=== PATIENT | female | born 1975 | race Hispanic/Latino ===

== ENCOUNTER 2018-09-27 15:06 | Outpatient (CLI) | payer MEDICAID, OTHER ==
--- NOTE | 2018-09-30 12:04 | MMO ---
BILATERAL SCREENING MAMMOGRAM: Date: 09/27/18 INDICATION: Annual exam. COMPARISON: Prior exam dated 04/12/17. FINDINGS: Interpretation of this exam was assisted with computer-aided detection. There is a new focal asymmetry seen within the 12 o'clock position of the right breast, middle depth, that was not definitely present on the comparison examination. The breast parenchyma is heterogeneously dense. No additional suspicious abnormality is seen, especially in the contralateral left breast. IMPRESSION: BIRADS 0: Incomplete: Need Additional Imaging Evaluation and/or Prior Mammograms for Comparison There is a new focal asymmetry seen within the 12 o'clock position of the right breast on the CC and MLO projection. Recommend spot magnification compression view with potential for ultrasound examinati on. The facility will notify patient of need for additional imaging services. POS: JOHN
== END 2018-09-27 15:07 | disposition home or self-care (01) ==
LOC: SCSMAMMO 15:06
PROVIDERS: ATTEND Nurse Practitioner Women's Health
DX: Z12.31 Encounter for screening mammogram for malignant neoplasm of breast (principal); N64.89 Other specified disorders of breast
CPT/HCPCS: 77067

== ENCOUNTER 2018-10-07 14:56 | Outpatient (CLI) | payer MEDICAID, OTHER ==
--- NOTE | 2018-10-08 15:00 | MMO ---
FILMS COMPARED: The present examination has been compared to prior imaging studies performed at [facility] on 04/12/2017 and 09/27/2018. MAMMOGRAM FINDINGS: The breast is heterogeneously dense, which could obscure a lesion on mammography. There is a focal asymmetry seen in the upper-outer region of the right breast. Tomosynthesis images show the abnormality to represent superimpostion of normal breast parenchyma. There are no suspicious masses, calcifications or areas of architectural distortion. IMPRESSION: FOCAL ASYMMETRY IN THE RIGHT BREAST IS BENIGN. A ROUTINE FOLLOW-UP MAMMOGRAM IN 1 YEAR IS RECOMMENDED. ACR BI-RADS Category 2 - Benign finding
== END 2018-10-07 14:57 | disposition home or self-care (01) ==
LOC: BICMAMMO 14:56
PROVIDERS: ATTEND Nurse Practitioner Women's Health
DX: R92.2 Inconclusive mammogram (principal); N64.89 Other specified disorders of breast
CPT/HCPCS: G0279

== ENCOUNTER 2019-09-29 15:49 | Outpatient (CLI) | payer BC ==
--- NOTE | 2019-09-29 16:25 | MMO ---
Bilateral MAMMO Bilat Screen [facility]. CLINICAL HISTORY: Patient is 44 years old and is seen for screening. The patient has the following family history of breast cancer: mother; maternal aunt and cousin female. The patient has no personal history of cancer. VIEWS: The views performed were: bilateral craniocaudal with tomosynthesis and bilateral mediolateral oblique with tomosynthesis. FILMS COMPARED: The present examination has been compared to prior imaging studies performed at [facility] on 04/12/2017, 09/27/2018 and 10/07/2018. This study has been interpreted with the assistance of computer-aided detection. MAMMOGRAM FINDINGS: The breasts are heterogeneously dense, which could obscure a lesion on mammography. There are no suspicious masses, suspicious calcifications, or new areas of architectural distortion. IMPRESSION: THERE IS NO MAMMOGRAPHIC EVIDENCE OF MALIGNANCY. A ROUTINE FOLLOW-UP MAMMOGRAM IN 1 YEAR IS RECOMMENDED. THE RESULTS OF THIS EXAM WERE SENT TO THE PATIENT. ACR BI-RADS Category 1 - Negative MAMMOGRAPHY NOTE: 1. A negative mammogram report should not delay a biopsy if a dominant of clinically suspicious mass is present. 2. Approximately 10% to 15% of breast cancers are not detected by mammography. 3. Adenosis and dense breasts may obscure an underlying neoplasm. Reported by: Rashawn ESCOBEDO Electonically Signed: [id number]
== END 2019-09-29 15:50 | disposition home or self-care (01) ==
LOC: BICMAMMO 15:49
PROVIDERS: ATTEND Family Medicine
DX: Z12.31 Encounter for screening mammogram for malignant neoplasm of breast (principal); Z80.3 Family history of malignant neoplasm of breast
CPT/HCPCS: 77063; 77067

== ENCOUNTER 2019-10-02 18:00 | Outpatient (CLI) | payer BC | END 2019-10-02 18:01 | disposition home or self-care (01) | LOC: SLEEPLAB 18:00 | PROVIDERS: ATTEND Family Medicine | DX: G47.33 Obstructive sleep apnea (adult) (pediatric) (principal); E66.9 Obesity, unspecified; R06.83 Snoring; F32.9 Major depressive disorder, single episode, unspecified | CPT/HCPCS: 95806 ==

== ENCOUNTER 2021-08-12 15:02 | Outpatient (CLI) | payer BC | END 2021-08-12 15:03 | disposition home or self-care (01) | LOC: BICMAMMO 15:02 | PROVIDERS: ATTEND Physician Assistant | DX: N64.4 Mastodynia (principal) | CPT/HCPCS: 77066; G0279 ==

== ENCOUNTER 2022-12-04 14:55 | Outpatient (CLI) | payer BC | END 2022-12-04 14:56 | disposition home or self-care (01) | LOC: BICMAMMO 14:55 | PROVIDERS: ATTEND Family Medicine | DX: Z12.31 Encounter for screening mammogram for malignant neoplasm of breast (principal) | CPT/HCPCS: 77063; 77067 ==